=== PATIENT | male | born 1985 | race Caucasian/White ===

== ENCOUNTER 2020-05-17 09:58 | Emergency (ER) | payer BC, OTHER ==
[~2020-05-17] VITALS: Ht 180.3 cm; Wt 77.1 kg
[2020-05-17] MEDS ORDERED: NORFLEX100 MG PO (10:47)
[2020-05-17] MEDS ORDERED: NAPROSYN500 MG PO (10:47)
[2020-05-17] MEDS ORDERED: TRAMADOL 50 MG50 MG PO (10:47)
[2020-05-17 10:57] VITALS: BP 110/84
== END 2020-05-17 10:57 ==
LOC: ER 09:58
DX: M54.16 Radiculopathy, lumbar region (principal); F17.210 Nicotine dependence, cigarettes, uncomplicated

== ENCOUNTER → 2020-11-30 | Outpatient (CLI) | payer BC, OTHER ==
[~2020-11-30] MED LIST: NAPROSYN500 MG PO; NORFLEX100 MG PO; TRAMADOL 50 MG50 MG PO
== END ==
LOC: LAB 08:53
PROVIDERS: ATTEND Family Medicine
DX: R06.02 Shortness of breath (principal); R51.9 Headache, unspecified; Z20.822 Contact with and (suspected) exposure to COVID-19